=== PATIENT | male | born 1945 ===

== ENCOUNTER → 2023-08-26 | Outpatient (CLI) | payer OTHER ==
[2023-08-26 09:22] LABS: African American GFR (CKD) >90 (>60 ml/min/1.73 sqM); Blood Urea Nitrogen 17 mg/dL (9-20); Non-African American GFR(CKD) 89 (>60 ml/min/1.73 sqM)
--- NOTE | 2023-08-26 09:42 | XR ---
EXAMINATION TYPE: XR chest 2V DATE OF EXAM: 08/26/2023 9:31 AM CLINICAL INDICATION:Male, 78 years old with history of C61 PROSTATE CA; COMPARISON: None TECHNIQUE: XR chest 2V Frontal and lateral views of the chest. FINDINGS: Lungs/Pleura: There is no evidence of pleural effusion, focal consolidation, or pneumothorax. Pulmonary vascularity: Unremarkable. Heart/mediastinum: Cardiomediastinal silhouette is unremarkable. Musculoskeletal: No acute osseous pathology. IMPRESSION: No acute cardiopulmonary disease/process.
--- NOTE | 2023-08-26 14:44 | NM ---
EXAMINATION TYPE: NM bone scan whole body DATE OF EXAM: 08/26/2023 1:49 PM CLINICAL INDICATION:Male, 78 years old with history of C61 PROSTATE CA; COMPARISON: 08/26/2023 TECHNIQUE: Intravenous administration 29.0 mCi Tc 99m MDP followed by multiple scintigraphic images o f the appendicular and axial skeleton. Additionally, small field of view planar anterior and posterio r images of the lumbosacral spine and pelvis. Lastly, coronal, transverse, and sagittal SPECT images of the lumbosacral spine and pelvis were generated for review.Lastly, small [id number] anterior, p osterior and lateral views of the chest were submitted for review. Images acquired 3 hours post injection. FINDINGS: No abnormal uptake is identified within the appendicular or axial skeleton to suggest metastatic dise ase. There is increased uptake within the bilateral shoulder, knees, sternoclavicular, and sacroiliac join ts consistent with degenerative changes. No other photopenic areas or areas of increased activity ar e identified. Contamination near the patient's private parts. Physiologic radiotracer activity is demonstrated in the kidneys and bladder. IMPRESSION: Nothing to suggest metastatic disease.
== END | disposition home or self-care (01) ==
LOC: RADNMMAIN 08:34
PROVIDERS: ATTEND Urology
DX: C61 Malignant neoplasm of prostate (principal)
CPT/HCPCS: 82565; 84520; 71046; 74177; 36415; 78306; A9503; Q9967

== ENCOUNTER → 2023-11-03 | Outpatient (CLI) | payer OTHER | END | disposition home or self-care (01) | LOC: LABWHC1 12:19 | DX: C61 Malignant neoplasm of prostate | CPT/HCPCS: 87077; 87086; 87186 ==

== ENCOUNTER 2023-11-11 11:25 | Day surgery (SDC) | payer OTHER ==
[~2023-11-11 11:25] MED LIST: DEXAMETHASONE SOD PHOSPHATE 4 MG/ML 1 ML VIAL ONE; HEPARIN SODIUM,PORCINE 5,000 UNIT/ML 1 ML VIAL ONE; ONDANSETRON 4 MG/2 ML VIAL ONE
[2023-11-11] MEDS ORDERED: LACTATED RINGERS 1,000 ML BAG ONE (14:30)
[2023-11-11] MEDS ORDERED: BUPIVACAINE (PF) 0.25% 30 ML VIAL ONE (14:30)
[2023-11-11] MEDS ORDERED: ceFAZolin 1 GM/50 ML BAG (PMX) ONE ×2 (14:30→14:32)
[2023-11-11] MEDS ORDERED: GLYCOPYRROLATE 0.2 MG/ML 2 ML VIAL ONE (14:32)
[2023-11-11] MEDS ORDERED: MIDAZOLAM 2 MG/2 ML VIAL ONE (14:32)
[2023-11-11] MEDS ORDERED: fentaNYL (PF) 50 MCG/ML 2 ML AMP ONE (14:32)
[2023-11-11] MEDS ORDERED: HYDROmorphone (PF) 1 MG/ML ONE (14:32)
[2023-11-11] MEDS ORDERED: ROCURONIUM 10 MG/ML (5 ML VIAL) IV ONE (14:32)
[2023-11-11] MEDS ORDERED: LIDOCAINE 1% INJ 10MG/ML (20 ML MDV) ONE (14:32)
[2023-11-11] MEDS ORDERED: PROPOFOL 10 MG/ML 20 ML VIAL IV ONE (14:32)
[2023-11-11] MEDS ORDERED: NEOSTIGMINE 1 MG/ML 10 ML VIAL ONE (14:32)
[2023-11-11] MEDS ORDERED: SUCCINYLCHOLINE CHLORIDE 200 MG/10 ML VIAL IV ONE (14:32)
[2023-11-11] MEDS ORDERED: hydrALAZINE HCL 20 MG/ML 1 ML VIAL ONE (14:32)
[2023-11-11] MEDS ORDERED: ONDANSETRON 4 MG/2 ML VIAL ONE ×2 (22:28)
[2023-11-12] MEDS ORDERED: HYDROcodone/APAP 5-325MG 1 EACH TAB ONE ×2 (01:13)
[2023-11-12] MEDS ORDERED: ONDANSETRON 4 MG/2 ML VIAL ONE ×2 (05:03)
[2023-11-12] MEDS ORDERED: KETOROLAC 15 MG/ML 1 ML VIAL ONE ×4 (05:03→12:37)
[2023-11-12] MEDS ORDERED: HEPARIN SODIUM,PORCINE 5,000 UNIT/ML 1 ML VIAL ONE (08:03)
--- NOTE | 2023-11-15 10:08 | OP ---
OPERATIVE REPORT DATE OF SERVICE : 11/11/2023 PREOPERATIVE DIAGNOSIS: Prostate cancer. POSTOPERATIVE DIAGNOSIS: Prostate cancer. PROCEDURE PERFORMED: Robotic-assisted laparoscopic radical prostatectomy with bilateral pelvic lymph node dissection. COMPLICATION: None. CONDITION: Stable. ESTIMATED BLOOD LOSS: 150 mL. IMPLANTS: None. SPECIMENS: Prostate, bilateral seminal vesicle, bilateral pelvic lymph nodes. INDICATIONS: This is a 78-year-old male with history of Grazyna 9 prostate cancer, options of robotic radial prostatectomy versus radiation therapy were discussed with him in detail. Risks, benefits and rationale of each approach were discussed, he agreed to proceed with a robotic radical prostatectomy. Aware of the risks which include, but are not limited to, bleeding, infection, injury to the nearby organs, urinary incontinence, erectile dysfunction. Discussed with him also risk of cancer recurrence and the need for additional treatments. He understood all the risk and agreed to proceed. DESCRIPTION OF PROCEDURE: The patient was brought to the operating room, general anesthesia was induced. He was prepped and draped in sterile fashion. He was placed in a supine position, all pressure points were padded. Initially I attempted to obtain insufflation through placement of the Veress needle at the supraumbilical location, but I was not able to obtain an adequate drop test, thus the decision was made to place the Veress needle at the left upper quadrant at Calderon point. At this point, I placed a Veress needle at that point and insufflation was achieved. Prior to insufflating the abdomen, drop test was performed, which confirmed the location of the Veress needle within the peritoneal cavity. An 8 mm robotic trocar was placed in the upper quadrant, superior to the umbilicus, laparoscopy was performed which showed no abnormality within the abdomen. There was no injury from the Veress or the port placement. At this time, 2 additional robotic trocars were placed along the left side and an additional 8 mm robotic trocar was placed in the right side, a 12 mm real estate legal assistant was placed more laterally, and a 5 mm real estate legal assistant port was placed in the right paramedian space. Next, the robot was docked in place. The patient had some adhesions along the left lower quadrant, this was taken down sharply. Attention was then carried to the prostatectomy and incision was made along the lateral portion of the bilateral medial umbilical ligaments. The bladder was mobilized and the space of Retzius was developed. At this point, the fat around the prostate was dissected down in order to clearly define the junction between the prostate and the bladder. The endopelvic fascia was opened bilaterally. At this point, attention was carried to the pelvic lymph nodes. Bilateral pelvic lymph node dissection was performed. The external iliac nodes and the obturator nodes were removed. There was no injury to the vessels or the obturator nerve. Hemostasis was achieved. At this point, attention was carried to the prostatectomy. The balloon was deflated and incision was made along the anterior bladder neck. At this point, the catheter was identified and placed on traction. Next, incision was made along the posterior bladder neck, bilateral ureteral courses were visualized and were not injured during the dissection. Next, the plane between the prostate and the bladder was developed. Of note, there was significant fibrotic tissue along the right side of that plane. I dissected down to the vas. Of note, bilaterally they were completely adherent and there was significant fibrotic reaction to them, there was no surgical plane, and I had to dissect both of the vas and the seminal vesicle using cautery as I was not able to peel them off. This was highly concerning for potential involvement of the bilateral seminal vesicle in carcinoma. At this time, the posterior plane was started. An incision was made in the posterior Denonvilliers and the pararectal fat was identified. This dissection was carried down to the apex. Of note, along the right side, the plane was fairly adherent, but I was able to peel off the rectum out of the prostate and there was no rectal injury. Attention was then carried to the pedicles, a partial nerve preservation was performed on the left, no nerve preservation was performed on the right. Nerve preservation was performed using the vessel sealer. Of note the right side of the prostate was fairly adherent and I did go as far as safely I can perform the dissection down as in a rectal injury. At this time, attention was then carried to the apex. The dorsal vein was incised and ligated using 3-0 V-Loc. An incision was made 2 mm away from the prostate. At this point, the prostate was disconnected. The prostate was placed in the EndoCatch bag. There was no evidence of bleeding. At this point, using 3-0 V-Loc, the posterior Denonvilliers of the bladder was reapproximated in the urethral connective tissue, but I was not able to mobilize the bladder completely down to the urethra as the bladder was fairly bulky. Attention was carried to the anastomosis. Using 9-inch V-Loc stitches, anastomosis was performed in running fashion. I was able to bring down the bladder down to the urethra, and it was ensured that mucosa was obtained with every stitch. The anastomosis was watertight with 150 mL. At this time, the robot was undocked, the supraumbilical incision was further incised and the prostate was removed through it. The fascia was closed using #1 PDS in [id number] fashion. The skin was closed using 4-0 Monocryl. Skin glue was applied to the incision. The patient was awakened from anesthesia and and taken to Recovery in stable condition. MMODL / IJN: [id number] / HEATHER
--- NOTE | 2023-12-07 11:39 | DS ---
DISCHARGE SUMMARY HOSPITAL COURSE: This is a 78-year-old male who underwent robotic assisted laparoscopic radical prostatectomy with bilateral pelvic lymph node dissection on 11/11/2023 for prostate cancer. The surgery was uncomplicated. He was admitted to the hospital postoperatively. He did well enough postoperatively. He was discharged home on postop day #1. At the time of discharge, he was tolerating diet, ambulating and pain was controlled. He was discharged home with a Duffy catheter. Will follow up in one week for catheter removal. MMODL / IJN: [id number] / MTDD
== END 2023-11-12 14:37 | disposition home or self-care (01) ==
LOC: OR 11:25 → UNDOADMIN 19:52 → 6NMEDSUR 19:52 → OR 11-12 14:37 → UNDODISIN 11-12 14:40 → 6NMEDSUR 11-12 17:15 → UNDODISIN 11-12 17:15 → 4SSUR 11-12 17:15
PROVIDERS: ATTEND Urology
DX: C61 Malignant neoplasm of prostate (principal); E07.9 Disorder of thyroid, unspecified; Z79.890 Hormone replacement therapy
CPT/HCPCS: 38570; 55866; S2900; 86850; 86900; 86901; 88309